=== PATIENT | female | born 1990 | race Two or more races ===

== ENCOUNTER 2018-04-06 06:13 | Inpatient (IN) ==
[2018-04-06] MEDS ORDERED: Citric Acid/Sodium Citrate Liq 30 ML UDC PO SCH ×2 (07:30)
--- NOTE | 2018-04-06 07:34 | P.HPOB ---
CONFIGURATION MANAGEMENT ANALYST - Consult Note Patient Name: Nadege Valdez Date of : 88 Patient Status: Clinical Attending Provider: Clay Calzada Date: 04/06/18 Initialization Date: 03/22/18 14:05 History of Present Illness Primary Care Physician: Sharon Primary Care Physician Dr Josh vigil Chief Complaint: Patient is twins footling breech breech presentation History of Present Illness: Patient is 28-year-old black female at 37 weeks with twin gestation that are in a breech breech presentation with the first twin a footling breech. She has been seen on labor and delivery, she has been checked and her cervix was 4-5 cm with the footling breech small parts presenting at the cervix, in my estimation that has an unstable lie for this baby presenting and that labor or rupture the membranes would put the patient at significant risk for cord prolapse, therefore she is being delivered at 37 weeks with bedrest until then Weeks Gestation:: 37 Para: 2 (2 vaginal deliveries term) : 3 Review of Systems Constitutional: Denies anorexia, Denies body ache(s), Denies chills, Denies daytime sleepiness, Denies excessive sweating, Denies fatigue, Denies fever(s), Denies headache(s), Denies increased appetite, Denies lack of energy, Denies malaise, Denies night sweats, Denies weakness, Denies weight gain, Denies weight loss, Denies other Cardiovascular: Denies chest pain, Denies chest pain at rest, Denies chest pain with activity, Denies excessive sweating, Denies fainting, Denies fast heart rate, Denies foot swelling, Denies generalized swelling, Denies irregular heart rhythm, Denies leg pain with activity, Denies leg sores, Denies leg swelling, Denies lightheadedness, Denies radiating jaw, neck or arm pain, Denies rapid, pounding, or irregular heartbeat, Denies shortness of breath, Denies shortness of breath with activity, Denies shortness of breath when lying down, Denies shortness of breath causing sudden awakening, Denies slow heart rate, Denies other Respiratory: Denies change in phlegm color, Denies chest congestion, Denies cough, Denies coughing up blood, Denies excessive phlegm production, Denies pain on inspiration, Denies pain with cough, Denies shortness of breath, Denies shortness of breath with activity, Denies snoring, Denies stridor, Denies wheezing, Denies other Gastrointestinal: Denies abdominal pain, Denies belching, Denies black, tarry stools, Denies bloating, Denies bright, red blood in stools, Denies change in bowel habits, Denies constant urge to pass stool, Denies change in stools, Denies coffee ground vomit, Denies constipation, Denies cramping, Denies difficulty swallowing, Denies excessive passing of gas, Denies feeling full early, Denies heartburn, Denies incontinent of stools, Denies loose stools, Denies nausea, Denies pain with swallowing, Denies vomiting, Denies vomiting blood, Denies other Genitourinary: Denies abnormal periods, Denies abnormal vaginal bleeding, Denies absent period, Denies bleeding between periods, Denies blood in urine, Denies difficulty starting urination, Denies difficulty urinating, Denies dribbling after urination, Denies frequent nighttime urination, Denies genital itching, Denies genital lesions, Denies heavy periods, Denies hot flashes, Denies light periods, Denies nipple discharge, Denies painful intercourse, Denies painful periods, Denies painful urination, Denies pelvic pain, Denies prolapse symptoms, Denies sexual problems, Denies side pain, Denies urinary incontinence, Denies urinary urgency, Denies vaginal discharge, Denies vaginal dryness, Denies vaginal odor, Denies vaginal itching, Denies other Neurologic: Denies abnormal hearing, Denies abnormal movements, Denies abnormal speech, Denies abnormal walking, Denies behavioral changes, Denies burning sensations, Denies confusion, Denies dizziness, Denies fainting, Denies frequent falls, Denies headache(s), Denies lack of coordination, Denies localized weakness, Denies loss of vision, Denies memory loss, Denies numbness, Denies other visual disturbances, Denies radiating pain, Denies restless legs, Denies convulsions, Denies seizure-like activity, Denies sensory deficit, Denies tingling, Denies tingling/numbness/burning sensations, Denies tremor(s), Denies unsteadiness, Denies weakness, Denies other PMFSH - Tobacco History Smoking Status: Never smoker - Alcohol History How Often Do You Have a Drink Containing Alcohol: Never - Substance Use History Substance History: No History of Abuse - Travel History History of Recent Travel: No Recent Travel in the [place] Within the Last 8 Weeks: No Recent Travel Out of the Country Within the Last 8 Weeks: No Medications and Allergies Allergies Allergy/AdvReac Type Severity Reaction Status Date / Time No Known Allergies Allergy Unverified 03/20/18 11:36 Exam - Constitutional no acute distress - Routine HEENT Exam Head: Present: normocephalic, atraumatic Eye: Present: PERRL - Routine Respiratory Exam Present: CTA bilaterally - Routine Cardiovascular Exam Present: RRR, S1, S2 - Routine Exam Comments: Cervix is 4 cm/50/-3/footling breech - Routine Neurological Exam Present: alert, oriented X3, CN II-XII intact Caprini VTE Risk Assessment Caprini VTE Risk Assessment: No/Low Risk (score <= 1) Caprini Risk Assessment Model: Point Value = 1 Point Value = 2 Point Value = 3 Point Value = 5 Age 41-60 Minor surgery BMI > 25 kg/m2 Swollen legs Varicose veins or History of unexplained or recurrent spontaneous Oral contraceptives or hormone replacement Sepsis (< 1 month) Serious lung disease, including pneumonia (< 1 month) Abnormal pulmonary function Acute myocardial infarction Congestive heart failure (< 1 month) History of inflammatory bowel disease Medical patient at bed rest Age 61-74 Arthroscopic surgery Major open surgery (> 45 min) Laparoscopic surgery (> 45 min) Malignancy Confined to bed (> 72 hours) Immobilizing plaster cast Central venous access Age >= 75 History of VTE Family history of VTE Factor V Leiden Prothrombin [id number] Lupus anticoagulant Anticardiolipin antibodies Elevated serum homocysteine Heparin-induced thrombocytopenia Other congenital or acquired thrombophilia Stroke (< 1 month) Elective arthroplasty Hip, pelvis, or leg fracture Acute spinal cord injury (< 1 month) Prophylaxis Regimen: Total Risk Factor Score Risk Level Prophylaxis Regimen 0-1 Low Early ambulation 2 Moderate Order ONE of the following: *Sequential Compression Device (SCD) *Heparin 5000 units SQ BID 3-4 Higher Order ONE of the following medications: *Heparin 5000 units SQ TID *Enoxaparin/Lovenox 40 mg SQ daily (WT < 150 kg, CrCl > 30 mL/min) *Enoxaparin/Lovenox 30 mg SQ daily (WT < 150 kg, CrCl > 10-29 mL/min) *Enoxaparin/Lovenox 30 mg SQ BID (WT < 150 kg, CrCl > 30 mL/min) AND/OR *Sequential Compression Device (SCD) 5 or more Highest Order ONE of the following medications: *Heparin 5000 units SQ TID (Preferred with Epidurals) *Enoxaparin/Lovenox 40 mg SQ daily (WT < 150 kg, CrCl > 30 mL/min) *Enoxaparin/Lovenox 30 mg SQ daily (WT < 150 kg, CrCl > 10-29 mL/min) *Enoxaparin/Lovenox 30 mg SQ BID (WT < 150 kg, CrCl > 30 mL/min) AND *Sequential Compression Device (SCD) Assessment and Plan - Diagnosis (1) Twin gestation in third trimester Code(s): O30.003 - Twin , unspecified number of placenta and unspecified number of amniotic sacs, third trimester Status: Acute (2) Double footling breech presentation Code(s): O32.8XX0 - Maternal care for other malpresentation of fetus, not applicable or unspecified Status: Acute (3) 37 weeks gestation of Code(s): Z3A.35 - 37 weeks gestation of Status: Acute - Plan Patient is a 37 week twin gestation at the time of her admission for a section. Twins were breech breech presentation with the first twin footling breech with small parts palpable the cervix it was 4 cm dilated. Was felt that due to relatively unstable lie on the first fetus that the section needed be done a little earlier so 37 weeks will proceed, will ultrasound before the procedure just confirmed continued breech presentation of the first baby
[2018-04-06 07:48] LABS: Baso % (Auto) 0.5 % (0.0-2.0); Eos # (Auto) 0.1 th/mm3 (0.0-0.4); Eos % (Auto) 1.2 % (0.0-4.0); Hematocrit 30.6 % (35.0-46.0); Hemoglobin 9.7 gm/dL (11.6-15.3); Lymph # (Auto) 1.5 th/mm3 (1.0-4.8); Lymph % (Auto) 17.3 % (9.0-44.0); Mean Corpuscular HGB Conc 31.9 % (32.0-36.0); Mean Corpuscular Hemoglobin 21.4 pg (27.0-34.0); Mean Platelet Volume 9.1 fL (7.0-11.0); Mono # (Auto) 0.4 th/mm3 (0.0-0.9); Mono % (Auto) 4.7 % (0.0-8.0); Neut # (Auto) 6.6 th/mm3 (1.8-7.7); Neut % (Auto) 76.3 % (16.0-70.0); Platelet Count 155 th/mm3 (150-450); Red Blood Count 4.56 mil/mm3 (4.00-5.30); Red Cell Distribution Width 16.6 % (11.6-17.2); White Blood Count 8.7 th/mm3 (4.0-11.0)
[2018-04-06] MEDS ORDERED: ceFAZolin Inj 2,000 MG in Sodium Chlor 0.9% Inj 80 ML IV.SIG SCH (08:00)
[2018-04-06] MEDS ORDERED: Morphine Sulfate PF Inj 5 MG/10 ML Ampul ONE (08:19)
[2018-04-06 08:35] LABS: Amphetamine Screen,Urine Neg (Neg); Barbiturate Screen,Urine Neg (Neg); Cannabinoid Screen,Urine Neg (Neg); Cocaine Screen,Urine Neg (Neg)
[2018-04-06] MEDS ORDERED: Phenylephrine/NS 1000 MCG/10ML Syringe IV.PUSH ONE (08:40)
[2018-04-06 08:49] LABS: Bacteria,Urine Many /hpf; Bilirubin,Urine Negative (Negative); Clarity,Urine Cloudy (Clear); Color,Urine Yellow (Yellw/Straw); Glucose,Urine (UA) Negative (Negative); Leukocyte Esterase,Urine Small (Negative); Mucus,Urine Moderate /lpf (Occasional); Nitrite,Urine Negative (Negative); Opiate Screen,Urine Neg (Neg); Specific Gravity,Urine 1.019 (1.002-1.035); Squamous Epithelial Cell,Urine 6 /hpf (0-5)
[2018-04-06] MEDS ORDERED: fentaNYL Citrate Inj 100 MCG/2 ML Ampul ONE ×2 (09:23→09:39)
[2018-04-06] MEDS ORDERED: Ketorolac Inj 30 MG/ML (IVP) Vial IV.PUSH ONE (09:50)
[2018-04-06] MEDS ORDERED: Acetaminophen 325 MG Tablet PO PRN (10:00)
[2018-04-06] MEDS ORDERED: Oxytocin 30 Units/500ml Premix 30 UNITS/500 ML BAG IV.SIG ONE ×2 (10:00→13:17)
--- NOTE | 2018-04-06 10:20 | P.OP ---
- Preoperative Diagnosis (1) 37 weeks gestation of (2) Twin gestation in third trimester (3) Double footling breech presentation - Postoperative Diagnosis (1) Double footling breech presentation (2) Twin gestation in third trimester Date of procedure: 04/06/18 Procedure: ` Primary low transverse section bilateral tubal ligation Anesthesia: spinal Surgeon: Clay Calzada MD Electron Gun Inspector: Lola Parkinson Estimated blood loss (mL): 500 IV fluids (mL): 1,000 Urine output (mL): 100 Operation and Findings: So multiparous patient with breech breech twins was taken to the operating room and given spinal anesthetic and then prepped and draped for abdominal surgery a Pfannenstiel incision was made in the lower abdomen and carried to fascia sharply fascia dissected off the rectus muscle and rectus split in the midline. The peritoneal cavity entered sharply. The incision extended superior and inferiorly. And stretched open. Bladder blade placed lower his incision and the visceral peritoneum reflected off of lower uterine segment placed on a bladder blade a transverse hysterotomy was made extended bluntly bilaterally. Clear fluid noted twin A is footling breech and was delivered by extracting the feet and legs and then the usual fashion breech extraction. Delayed cord clamping done delivery was at 9:12 AM female weight 2945 g 8/ 9 there were no complications. Cord blood obtained baby be delivered in a similar footling breech presentation at 9:15 AM female weight 2660 g 8/ 8. Placenta manually extracted and examined and sent to pathology the uterus exteriorized hysterotomy closed in running layer of 0 chromic followed by imbricating suture same hemostasis was achieved the bladder was reapproximated using a running suture of 2-0 Vicryl. Then the tubal ligation was performed a Amada placed on the left fallopian tube and an avascular portion of mesosalpinx identified. A hemostat passed through that window and 2 catgut sutures brought through that defect and the tube was tied fore and aft in the usual fashion. The intervening segment of tube sent to pathology. Hemostasis achieved the same was done on the opposite side with the right tube. There were no complications to her tubal. The uterus elevated blood suctioned the cul-de-sac gutters the uterus replaced the peritoneal cavity. Hemostasis was achieved and parietal peritoneum closed running layer 2-0 Vicryl. Rectus muscle reapproximated with stick ties of chromic. And the fascia closed in running layer of 0 Vicryl. Subcutaneous tissues brought together with 0 plain catgut suture and skin closed with 3-0 Monocryl subcuticular stitch. Pressure dressing applied. The blood loss 500 cc sponge and needle correct 2 and there were no complications.
[2018-04-06] MEDS ORDERED: Oxytocin 30 Units/500ml Premix 30 UNITS/500 ML BAG ONE (11:18)
[2018-04-06] MEDS ORDERED: Naloxone Inj 0.4 MG/ML Vial IV.PUSH PRN (13:23)
[2018-04-06] MEDS ORDERED: Oxytocin 30 Units/500ml Premix 30 UNITS/500 ML BAG IV.SIG PRN ×2 (15:00→18:17)
[2018-04-07] MEDS: ceFAZolin Inj 2,000 MG in Sodium Chlor 0.9% Inj 80 ML IV.SIG SCH ×2 (00:15→08:06)
[2018-04-07 07:37] LABS: Baso % (Auto) 0.2 % (0.0-2.0); Eos # (Auto) 0.1 th/mm3 (0.0-0.4); Eos % (Auto) 0.5 % (0.0-4.0); Hematocrit 27.6 % (35.0-46.0); Hemoglobin 8.6 gm/dL (11.6-15.3); Lymph # (Auto) 2.1 th/mm3 (1.0-4.8); Lymph % (Auto) 17.7 % (9.0-44.0); Mean Corpuscular HGB Conc 31.1 % (32.0-36.0); Mean Corpuscular Hemoglobin 21.1 pg (27.0-34.0); Mean Corpuscular Volume 67.7 fL (80.0-100.0); Mono # (Auto) 0.7 th/mm3 (0.0-0.9); Mono % (Auto) 5.8 % (0.0-8.0); Neut # (Auto) 9.2 th/mm3 (1.8-7.7); Neut % (Auto) 75.8 % (16.0-70.0); Platelet Count 137 th/mm3 (150-450); Red Blood Count 4.08 mil/mm3 (4.00-5.30); Red Cell Distribution Width 16.5 % (11.6-17.2); White Blood Count 12.1 th/mm3 (4.0-11.0)
--- NOTE | 2018-04-07 09:20 | P.PNOB ---
Subjective Interval history: Patient seen and examined this morning. She is a 28 year-old delivered at 37 wks. Patient is postop day 1 after elective and tubal ligation. Patient's pain is well-controlled. Patient reports eating and drinking without any nausea or vomiting. Patient reports minimal bleeding. Patient has not passed gas and has not had a bowel movements. Patient is walking without lower extremity pain or shortness of breath. Patient is breast-feeding appropriately. Objective Vital Signs/I&O: Vital Signs 04/06/18 10:10 04/06/18 10:25 04/06/18 10:40 Temperature 98.2 F Pulse Rate 80 80 76 Respiratory Rate 18 18 18 Blood Pressure 127/69 126/74 143/70 H 04/06/18 10:55 04/06/18 11:09 04/06/18 11:16 Temperature Pulse Rate 75 73 76 Respiratory Rate 18 18 18 Blood Pressure 135/72 131/80 103/67 04/06/18 13:00 04/06/18 16:00 04/06/18 20:00 Temperature 98.0 F 98.9 F 98.1 F Pulse Rate 76 83 73 Respiratory Rate 18 18 18 Blood Pressure 128/74 95/60 L 107/67 04/07/18 00:21 04/07/18 03:56 04/07/18 08:00 Temperature 98.2 F 98.0 F 98.1 F Pulse Rate 74 67 71 Respiratory Rate 18 18 20 Blood Pressure 109/65 105/69 121/79 Intake & Output 04/06/18 04/07/18 04/07/18 18:59 06:59 18:59 Intake Total 100 / 100 100 / 100 Balance 100 / 100 100 / 100 Weight 101.151 kg Intake: IV 100 / 100 100 / 100 Ancef Inj 2,000 MG In NS Inj 80 100 / 100 100 / 100 ML @ 200 mls/hr IV.SIG Q8H [facility] Rx#:[id number] Other: Weight On Admission 101.151 kg Result Diagrams: 04/07/18 06:50 Objective Remarks: GENERAL: Well-nourished, well-developed patient. CARDIOVASCULAR: Regular rate and rhythm without murmurs, gallops, or rubs. RESPIRATORY: Breath sounds equal bilaterally. No accessory muscle use. ABDOMEN/GI: Abdomen soft, non-tender, bowel sounds present. Incision: Clean, dry and intact. Fundus: Firm, non-tender at umbilicus. GENITOURINARY: Light to moderate bleeding. EXTREMITIES: No cyanosis or edema, non-tender, without signs of DVT. Medications and IVs: Active Medications Acetaminophen (Tylenol) 650 mg PO Q6H PRN PRN Reason: PAIN SCALE 1 TO 2 Citric Acid/Sodium Citrate (Sodium Citrate/Citric Acid Liq) 30 ml PO PRODUCT TESTER [facility] Stop: 04/10/18 07:29 Last Admin: 04/06/18 08:16 Dose: 30 ml Diphenhydramine HCl (Benadryl) 50 mg PO Q6H PRN PRN Reason: MILD TO MODERATE ITCHING Stop: 04/07/18 13:22 Last Admin: 04/06/18 13:48 Dose: 50 mg Diphenhydramine HCl (Benadryl Inj) 25 mg IV.PUSH Q6H PRN PRN Reason: MILD TO MODERATE ITCHING Stop: 04/07/18 13:22 Diphtheria/Pertussis/Tetanus Vacc (Boostrix Vaccine Inj) 0.5 ml IM .ONCE ONE Stop: 04/07/18 16:01 Cefazolin Sodium 2,000 mg/ (Sodium Chloride) 100 mls @ 200 mls/hr IV.SIG PRODUCT TESTER [facility] Stop: 04/10/18 07:59 Lactated Ringer's (Lr 1000 Ml Inj) 1,000 mls @ 150 mls/hr IV.CONT .Q6H40M [facility] Last Admin: 04/07/18 02:56 Dose: Not Given Lactated Ringer's (Lr 1000 Ml Inj) 1,000 mls @ 100 mls/hr IV.CONT .Q10H [facility] Stop: 04/07/18 10:59 Last Admin: 04/07/18 02:55 Dose: Not Given Oxytocin (Pitocin 30 Units/Ns 500 Ml Premix) 30 units in 500 mls @ 100 mls/hr IV.SIG UNSCH PRN PRN Reason: Heavy bleeding Last Admin: 04/06/18 13:36 Dose: 100 mls/hr Ibuprofen (Motrin) 800 mg PO Q8H PRN PRN Reason: cramping Last Admin: 04/07/18 05:06 Dose: 800 mg Measles/Mumps/Rubella Vaccine Live (M-M-R Ii Vaccine Inj) 0.5 ml SQ .ONCE ONE Stop: 04/07/18 16:01 Miscellaneous Information ([facility]) 1 each OTHER UNSCH PRN PRN Reason: SEE LABEL COMMENTS Stop: 04/07/18 13:22 Miscellaneous Information ([facility]) 1 each OTHER UNSCH PRN PRN Reason: SEE LABEL COMMENTS Stop: 04/07/18 13:22 Naloxone HCl (Narcan Inj) 0.4 mg IV.PUSH UNSCH PRN PRN Reason: SEE LABEL COMMENTS Stop: 04/07/18 13:22 Oxycodone/Acetaminophen (Percocet 5/325 Mg) 1 tab PO Q4H PRN PRN Reason: PAIN SCALE 3 TO 5 Last Admin: 04/07/18 05:06 Dose: 1 tab Oxycodone/Acetaminophen (Percocet 5/325 Mg) 2 tab PO Q4H PRN PRN Reason: PAIN SCALE 6 TO 10 Sodium Chloride (Ns Flush) 2 ml IV.FLUSH BID CATHY Last Admin: 04/06/18 20:13 Dose: Not Given Sodium Chloride (Ns Flush) 2 ml IV.FLUSH PRN PRN PRN Reason: FLUSH AFTER USING IV ACCESS Assessment and Plan - Plan Patient is a 28 year-old delivered at 37 weeks. Patient is post op day 1 after elective c/section with tubal ligation. Continue routine care. Motrin and Percocet when necessary for pain. Encourage OOB Pelvic rest for 6 weeks will need follow-up appointment at that time. Encourage Stool softener for BM. appropriately. Discussed with .
[2018-04-07] MEDS: Senna/Docusate Sodium 8.6/50 MG Tablet PO PRN ×2 (10:52→21:07)
[2018-04-07] MEDS ORDERED: Diphtheria/Tetanus/Pertussis Vaccine Inj 0.5 ML Syringe IM ONE (14:50)
[2018-04-07] MEDS ORDERED: Measles/Mumps/Rubella Vaccine Inj 0.5 ML Vial SQ ONE (16:00)
--- NOTE | 2018-04-08 07:56 | P.PNOB ---
Subjective Post op day: 2 Interval history: Patient is a 28-year-old delivered at 37 weeks and 1 day. Patient is day 2 after c/s. Patient's pain is well-controlled. Patient reports minimal bleeding. Patient reports eating and drinking without any nausea or vomiting. Patient has passed gas but has not had a bowel movement. Patient denies chest pain and shortness of breath. Patient has been ambulating; she denies lower extremity pain. Patient has decided to breast and bottle-feed. Objective Vital Signs/I&O: Vital Signs 04/07/18 08:00 04/07/18 20:05 04/08/18 07:35 Temperature 98.1 F 98.0 F 98.1 F Pulse Rate 71 86 83 Respiratory Rate 20 Blood Pressure 121/79 131/72 111/75 Result Diagrams: 04/07/18 06:50 Objective Remarks: GENERAL: Well-nourished, well-developed patient. CARDIOVASCULAR: Regular rate and rhythm without murmurs, gallops, or rubs. RESPIRATORY: Breath sounds equal bilaterally. No accessory muscle use. ABDOMEN/GI: Abdomen soft, non-tender, bowel sounds present. Incision: Clean, dry and intact. Fundus: Firm, non-tender at umbilicus. GENITOURINARY: Light to moderate bleeding. EXTREMITIES: No cyanosis or edema, non-tender, without signs of DVT. Medications and IVs: Active Medications Acetaminophen (Tylenol) 650 mg PO Q6H PRN PRN Reason: PAIN SCALE 1 TO 2 Citric Acid/Sodium Citrate (Sodium Citrate/Citric Acid Liq) 30 ml PO WAREHOUSE MATERIAL HANDLER [facility] Stop: 04/10/18 07:29 Last Admin: 04/06/18 08:16 Dose: 30 ml Cefazolin Sodium 2,000 mg/ (Sodium Chloride) 100 mls @ 200 mls/hr IV.SIG WAREHOUSE MATERIAL HAND[employer] [facility] Stop: 04/10/18 07:59 Lactated Ringer's (Lr 1000 Ml Inj) 1,000 mls @ 150 mls/hr IV.CONT .Q6H40M [facility] Last Admin: 04/08/18 07:38 Dose: Not Given Oxytocin (Pitocin 30 Units/Ns 500 Ml Premix) 30 units in 500 mls @ 100 mls/hr IV.SIG UNSCH PRN PRN Reason: Heavy bleeding Last Admin: 04/06/18 13:36 Dose: 100 mls/hr Ibuprofen (Motrin) 800 mg PO Q8H PRN PRN Reason: cramping Last Admin: 04/08/18 00:47 Dose: 800 mg Oxycodone/Acetaminophen (Percocet 5/325 Mg) 1 tab PO Q4H PRN PRN Reason: PAIN SCALE 3 TO 5 Last Admin: 04/07/18 14:52 Dose: 1 tab Oxycodone/Acetaminophen (Percocet 5/325 Mg) 2 tab PO Q4H PRN PRN Reason: PAIN SCALE 6 TO 10 Last Admin: 04/08/18 00:45 Dose: 2 tab Senna/Docusate Sodium (Marily-Colace) 2 tab PO Q12H PRN PRN Reason: CONSTIPATION Last Admin: 04/07/18 21:07 Dose: 2 tab Sodium Chloride (Ns Flush) 2 ml IV.FLUSH BID CATHY Last Admin: 04/08/18 01:31 Dose: Not Given Sodium Chloride (Ns Flush) 2 ml IV.FLUSH PRN PRN PRN Reason: FLUSH AFTER USING IV ACCESS Assessment and Plan - Diagnosis (1) delivery delivered Code(s): O82 - Encounter for delivery without indication Status: Acute (2) Anemia Code(s): D64.9 - Anemia, unspecified Status: Acute Plan: asymptomatic, will use Fe supplements - Plan Patient is a 28-year-old delivered at 37 weeks and 1 day. Patient is day 2 after c/s. Continue routine care. Motrin and Percocet when necessary for pain. Encourage OOB. Incision check 1-2 weeks following discharge. Pelvic rest for 6 weeks will need follow-up appointment at that time. Anticipate discharge tomorrow. sarah OB hospitalist
[2018-04-08] MEDS: Senna/Docusate Sodium 8.6/50 MG Tablet PO PRN ×2 (09:28→22:08)
--- NOTE | 2018-04-09 09:26 | P.PNOB ---
Subjective Post op day: 3 Interval history: Patient is a 28-year-old delivered at 37 weeks and 1 day. Patient is day 3 after c/s. Patient's pain is well-controlled. Patient reports minimal bleeding. Patient reports eating and drinking without any nausea or vomiting. Patient has passed gas but has not had a bowel movement. Patient denies chest pain and shortness of breath. Patient has been ambulating; she denies lower extremity pain. Patient has decided to breast and bottle-feed. Objective Vital Signs/I&O: Vital Signs 04/08/18 19:50 Temperature 98.3 F Pulse Rate 88 Respiratory Rate 17 Blood Pressure 119/69 Result Diagrams: 04/07/18 06:50 Objective Remarks: GENERAL: Well-nourished, well-developed patient. CARDIOVASCULAR: Regular rate and rhythm without murmurs, gallops, or rubs. RESPIRATORY: Breath sounds equal bilaterally. No accessory muscle use. ABDOMEN/GI: Abdomen soft, non-tender, bowel sounds present. Incision: Clean, dry and intact. Fundus: Firm, non-tender at umbilicus. GENITOURINARY: Light to moderate bleeding. EXTREMITIES: No cyanosis or edema, non-tender, without signs of DVT. Medications and IVs: Active Medications Acetaminophen (Tylenol) 650 mg PO Q6H PRN PRN Reason: PAIN SCALE 1 TO 2 Citric Acid/Sodium Citrate (Sodium Citrate/Citric Acid Liq) 30 ml PO DRAW [employer] Stop: 04/10/18 07:29 Last Admin: 04/06/18 08:16 Dose: 30 ml Cefazolin Sodium 2,000 mg/ (Sodium Chloride) 100 mls @ 200 mls/hr IV.SIG [facility] Stop: 04/10/18 07:59 Lactated Ringer's (Lr 1000 Ml Inj) 1,000 mls @ 150 mls/hr IV.CONT .Q6H40M [facility] Last Admin: 04/09/18 03:49 Dose: Not Given Oxytocin (Pitocin 30 Units/Ns 500 Ml Premix) 30 units in 500 mls @ 100 mls/hr IV.SIG UNSCH PRN PRN Reason: Heavy bleeding Last Admin: 04/06/18 13:36 Dose: 100 mls/hr Ibuprofen (Motrin) 800 mg PO Q8H PRN PRN Reason: cramping Last Admin: 04/09/18 02:40 Dose: 800 mg Oxycodone/Acetaminophen (Percocet 5/325 Mg) 1 tab PO Q4H PRN PRN Reason: PAIN SCALE 3 TO 5 Last Admin: 04/08/18 22:08 Dose: 1 tab Oxycodone/Acetaminophen (Percocet 5/325 Mg) 2 tab PO Q4H PRN PRN Reason: PAIN SCALE 6 TO 10 Last Admin: 04/09/18 02:40 Dose: 2 tab Senna/Docusate Sodium (Marily-Colace) 2 tab PO Q12H PRN PRN Reason: CONSTIPATION Last Admin: 04/08/18 22:08 Dose: 2 tab Sodium Chloride (Ns Flush) 2 ml IV.FLUSH BID CATHY Last Admin: 04/09/18 02:32 Dose: Not Given Sodium Chloride (Ns Flush) 2 ml IV.FLUSH PRN PRN PRN Reason: FLUSH AFTER USING IV ACCESS Assessment and Plan - Diagnosis (1) delivery delivered Code(s): O82 - Encounter for delivery without indication Status: Acute - Plan Patient is a 28-year-old delivered at 37 weeks and 1 day. Patient is day 3 after c/s. Continue routine care. Motrin and Percocet when necessary for pain. Encourage OOB. Incision check 1-2 weeks following discharge. control: patient had tubal ligation Pelvic rest for 6 weeks will need follow-up appointment at that time. Anticipate discharge today. sarah OB hospitalist - Attending Attestation The exam, history, and the medical decision-making described in the above note were completed with the assistance of the resident physician. I reviewed and agree with the findings presented. I attest that I had a [id number] encounter with the patient on the same day, and personally performed and documented my assessment and findings in the medical record.
== END 2018-04-09 12:54 | disposition home or self-care (01) ==
LOC: H2E 06:13 → H1EA 11:51
PROVIDERS: ADMIT Obstetrics & Gynecology Maternal & Fetal Medicine; ATTEND Obstetrics & Gynecology Maternal & Fetal Medicine